=== PATIENT | male | born 1965 | race Caucasian/White ===

== ENCOUNTER 2017-05-30 22:09 | Inpatient (IN) | payer MEDICAID, OTHER ==
[~2017-05-30 22:09] MED LIST: ISOVUE-370 76%-LOCM 1 ML ONE
[2017-05-30 22:46] LABS: #Basophils 0.1 thou/uL (0.0-0.2); #Eosinphils 0.4 thou/uL (0.0-0.7); #Lymphocytes 1.6 thou/uL (1.20-3.40); #Monocytes 0.8 thou/uL (0.11-0.59); #Neutrophils 11.7 thou/uL (1.40-6.50); %Basophils 0.5 % (0.0-1.0); %Eosinophils 2.8 % (0.0-10.0); %Lymphocytes 10.9 % (21.0-51.0); %Monocytes 5.7 % (0.0-10.0); %Neutrophils 80.1 % (42.0-75.0); Hemoglobin 15.1 g/dL (14.0-18.0); Mean Corpuscular HGB CONC 33.2 g/dL (32.0-36.0); Mean Corpuscular Hemoglobin 28.6 pg (27.0-31.0); Mean Corpuscular Volume 86.2 fl (80.0-94.0); Mean Platelet Volume 7.4 fL (7.4-10.4); Platelet Count 363 thou/uL (130-400); RBC Distribution Width 13.6 % (11.5-14.5); Red Blood Cell (RBC) Count 5.27 mill/uL (4.70-6.10); White Blood Cell (WBC) Count 14.6 thou/uL (4.8-10.8)
--- NOTE | 2017-05-30 22:54 | RAD ---
EXAM: ONE VIEW CHEST 05/30/17 HISTORY: Chest pain. Shortness of breath. Congestive heart failure. COMPARISON: None. FINDINGS: Portable upright chest demonstrates a left sided transvenous defibrillator with lead position in righ t atrium and right ventricle. Heart size is normal. Pulmonary vessels and hilum are normal. Costophre rula angles are clear. Blunting of the left costophrenic angle. Right costophrenic angle is clear. No masses or consolidation. Adequate aeration of the right lung. Patchy interstitial opacities in the le ft mid lung. No pneumothorax or osseous abnormalities. IMPRESSION: Patchy interstitial opacity left mid lung. Blunting of the left costophrenic angle likely due to smal l effusion. POS: [facility]
[2017-05-30 23:06] LABS: ALT (SGPT) 36 U/L (8-55); AST (SGOT) 29 U/L (5-34); Albumin 4.2 g/dL (3.5-5.0); Alkaline Phosphatase 64 U/L (40-150); Anion Gap 13 mmol/L (10-20); BUN (Urea Nitrogen) 18 mg/dL (8.4-25.7); Bilirubin, Total 0.6 mg/dL (0.2-1.2); CK (CPK) 505 U/L (30-200); Calc. Creatinine Clearance 0 mL/min (70-130); Calcium 9.8 mg/dL (7.8-10.44); Carbon Dioxide 25 mmol/L (22-29); Chloride 101 mmol/L (98-107); Estimated GFR-MDRD 57; Globulin 2.9 g/dL (2.4-3.5); Glucose 97 mg/dL (70-105); Potassium 4.2 mmol/L (3.5-5.1); Protein, Total 7.1 g/dL (6.0-8.3); Sodium 135 mmol/L (136-145)
[2017-05-30 23:14] LABS: CKMB 3.3 ng/mL (0-6.6); Troponin I 0.013 ng/mL (< 0.028)
[2017-05-30] MEDS ORDERED: Piperacillin/Tazobactam 4.5 GM in Sodium Chloride 0.9% 100 ML IVPB SCH (23:45)
[2017-05-30] MEDS ORDERED: Morphine 4 MG/ML Carpuject ONE (23:50)
--- NOTE | 2017-05-31 00:02 | CT ---
EXAM CT ANGIOGRAM OF THE CHEST 05/30/17 HISTORY: Chest pain. Patient has a history of pulmonary artery emboli. Atrial fibrillation. Patient has a clot ting disorder. COMPARISON: None. TECHNIQUE: CT angiogram of the chest is performed in the axial plane. Bilateral oblique and coronal three dimens ional reformatted images are submitted for interpretation. FINDINGS: Trachea and central bronchi are patent. Emphysematous changes in the left and right upper lobe are no roxy. There is a pleural based opacity in the anterior aspect of the left upper lobe measuring 2.0 x 1 .0 cm. Area of scar or atelectasis is favored. A focal infiltrate cannot be excluded. Followup CT in six weeks is recommended. There are dependent atelectatic changes in the lung bases. There is no pleu ral effusion. No pneumothorax. The visualized upper solid organs are unremarkable. Note is made of an IVC filter. No mediastinal mass, lymphadenopathy, or hematoma. Heart size is within normal limits. No pericardial effusion. The visualized aorta has a normal caliber. No periaortic fat stranding. Limited evaluation of the pulmonary artery system due to timing of bolus. There is adequate contrast opacification of the pulmonary arterial system to the level of the lobar artery. No filling defect to suggest thromboembolism. Evaluation of the segmental and subsegmental artery is limited on this exam ination. No evidence of a lytic or blastic lesion in the osseous structures. The thoracic spine hemangiomas ma y be present. IMPRESSION: 1. Limited evaluation of the pulmonary arterial system due to timing of bolus. There is adequate contrast opacification of the pulmonary arterial system to the level of the lobar arteries. No filli ng defect to suggest thromboembolism. 2. Pleural based opacity in the left upper lobe which may represent scar, atelectasis or infiltr ate. Followup exam in six weeks is recommend to ensure resolution. POS: [facility]
[2017-05-31] MEDS ORDERED: Ondansetron HCl/PF 4 MG/2 ML Vial IVP PRN ×2 (00:58→20:21)
[2017-05-31] MEDS ORDERED: Ondansetron ODT 4 MG TAB SL PRN (00:58)
[2017-05-31 02:41] LABS: Troponin I Less than 0.010 ng/mL (< 0.028)
[2017-05-31 04:30] VITALS: BMI 27.4
[2017-05-31] MEDS: HYDROcodone/Acetaminophen 10/325 mg Tablet PO PRN ×5 (05:48→23:44)
[2017-05-31 05:53] LABS: Troponin I 0.012 ng/mL (< 0.028)
[2017-05-31] MEDS ORDERED: HYDROcodone/Acetaminophen 10/325 mg Tablet PO PRN (12:36)
[2017-05-31] MEDS ORDERED: Non-Formulary Item 1 EACH (Potassium Chloride [Potassium Chloride] 20 MEQ) PO PRN (12:36)
[2017-05-31] MEDS ORDERED: Non-Formulary Item 1 EACH (Clonazepam [Clonazepam] 2 MG) PO PRN (12:36)
[2017-05-31] MEDS ORDERED: Furosemide 20 MG TAB PO PRN (12:36)
[2017-05-31] MEDS ORDERED: Furosemide 40 MG TAB PO PRN (12:44)
[2017-05-31] MEDS ORDERED: Benzonatate 100 MG CAP PO SCH (12:45)
[2017-05-31] MEDS ORDERED: clonazePAM 1 MG TAB PO PRN (12:46)
[2017-05-31] MEDS ORDERED: Potassium Chloride 20 MEQ TAB PO PRN (12:47)
[2017-05-31] MEDS: Benzonatate 100 MG CAP PO SCH ×2 (15:50→20:41)
--- NOTE | 2017-05-31 19:32 | HP ---
DATE OF ADMISSION: 05/31/2017 ADMITTING PHYSICIAN: Dr. Carlos Carlin. CHIEF COMPLAINT: Chest pain and shortness of breath. HISTORY OF PRESENT ILLNESS: The patient is a 51-year-old gentleman with a long cardiac history inclu ding atrial fibrillation and systolic congestive heart failure. The patient reports that for the t 3-4 days he has had worsening shortness of breath, chest pain, and for the last day he has had a pe rsistent cough. He reports that his pain became worse about 8:00 last night and he experienced dizzi ness and lightheadedness. He does have a significant cardiac history including atrial fibrillation s tyson his childhood, cardiomyopathy, defibrillator, congestive heart failure. The patient also has a history of hypercoagulability. He denies any sick contacts. Denies subjective fevers and chills, bu t does report lethargy. Normal Cardiology care is provided at [facility] in [place]. He is in town visiting a friend. Primary care is in [place]. REVIEW OF SYSTEMS: The following complete review of systems was negative, unless otherwise mentioned in the HPI or below: Constitutional: Weight loss or gain, sense of well-being, ability to conduct usual activities, exerc ise tolerance. Skin/Breast: Rash, itching, changes in hair growth or loss, nail changes, breast lumps, tenderness, swelling, nipple discharge. Eyes: Vision, double vision, tearing, blind spots, pain. ENT/Mouth: Headaches (location, time of onset, duration, precipitating factors), vertigo, lightheade dness, injury. Vision, double vision, tearing, blind spots, pain, nose bleeding, colds, obstruction, discharge, dental difficulties, gingival bleeding, dentures, neck stiffness, pain, tenderness, masses in thyroid or other areas. Cardiovascular: Precordial pain, substernal distress, palpitations, syncope, dyspnea on exertion, or thopnea, nocturnal paroxysmal dyspnea, edema, cyanosis, hypertension, heart murmurs, varicosities, ph lebitis, claudication. Respiratory: Pain, shortness of breath, wheezing, stridor, cough, hemoptysis, fever or night sweats. Gastrointestinal: Poor appetite, dysphagia, indigestion, abdominal pain, heartburn, eructation, naus ea, vomiting, hematemesis, jaundice, constipation, or diarrhea, abnormal stools (nisreen-colored, tarry, bloody, greasy, foul smelling), flatulence, hemorrhoids, recent changes in bowel habits. Genitourinary: Urgency, frequency, dysuria, nocturia, hematuria, polyuria, oliguria, unusual (or thony nge in) color of urine, stones, hesitancy, change in size of stream, dribbling, acute retention or in continence, libido, potency. Musculoskeletal: Pain, swelling, redness or heat of muscles or joints, limitation, of motion, muscul ar weakness, atrophy, cramps. Neurologic/Psychiatric: Convulsions, paralyses, tremor, incoordination, paresthesias, difficulties w ith memory of speech, sensory or motor disturbances, or muscular coordination (ataxia, tremor), emoti onal problems, anxiety, depression, previous psychiatric care, unusual perceptions, hallucinations. Allergy/Immunologic: Skin rash, anemia, bleeding tendency, polydipsia, polyuria, intolerance to heat or cold. PAST MEDICAL HISTORY: Significant for chronic atrial fibrillation, systolic congestive heart failure , hypertension, renal disease, pulmonary disease. PAST SURGICAL HISTORY: Positive for cardiac ablation and pacemaker placement. SOCIAL HISTORY: The patient uses marijuana. Denies alcohol or tobacco. FAMILY HISTORY: Reviewed and noncontributory to this case. DRUG ALLERGIES: No known drug allergies. HOME MEDICATIONS: Include acetaminophen and codeine 300 mg and 30 mg one to two tabs q.6 hours as ne eded, carvedilol 25 mg 1 tab b.i.d., Lasix 40 mg 1 tab as needed, Protonix 40 mg 1 tab q. day, Xarelt o 20 mg 1 tablet q. day, eplerenone 25 mg once a day, fentanyl patch 25 mg q.72 hours. PHYSICAL EXAMINATION: VITAL SIGNS: Blood pressure 136/73, pulse 80, respirations 16, pain 4, O2 sats 96% on 2 liters. GENERAL: He does appear to be in mild distress. HEAD: Normocephalic, atraumatic. EYES: PERRL. Extraocular muscles intact. ENT: External nose exam normal. Mouth exam normal. Mucous membranes moist. NECK: Trachea midline. Supple, full range of motion. LUNGS: There are few scant rhonchi diffusely. CARDIAC: Irregularly irregular. ABDOMEN: Nontender, nondistended. EXTREMITIES: No clubbing, cyanosis or edema. SKIN: There is some erythema in face and torso. NEUROLOGIC: Full range of motion in all extremities. Cranial nerves II-XII grossly intact. LABORATORY DATA AND IMAGES: CBC shows a white count of 14.6, hemoglobin 15, hematocrit 45.5, platele ts 263, neutrophils 80%, no bands. Chem-7 shows sodium of 135, potassium 4.2, chloride 101, CO2 of 2 5, BUN 18, creatinine 1.31, glucose 97, AST 29, ALT 36, albumin 4.2. BNP of 21.7. Troponin I 0.013, 0.01 and 0.012 with a CK-MB fraction of 3.3. His creatine kinase was elevated at 505. Chest and th orax CT angiogram shows no filling defect to suggest thromboembolism. There is a pleural-based opaci ty in the left upper lobe, which may represent scar, atelectasis or infiltrate. Chest x-ray showed p atchy interstitial opacity of the left mid lung with blunting of the left costophrenic angle likely d ue to a small effusion. ASSESSMENT: 1. Pneumonia. 2. Atypical chest pain. 3. Systolic congestive heart failure. 4. Chronic kidney disease, grade 2. PLAN: The patient will be admitted to telemetry unit. We will continue the patient's anticoagulatio n. The patient will be treated empirically with Levaquin for community-acquired pneumonia. The foster ent appears to be stable from a cardiac standpoint at this time, we will follow closely and acquire a Cardiology input as needed. We will provide DVT prophylaxis with SCD devices although the patient i s currently anticoagulate.
[2017-05-31] MEDS ORDERED: Ondansetron ODT 4 MG TAB PO PRN (20:21)
[2017-05-31] MEDS: Sacubitril 24.5 MG/Valsartan 25.5 MG TABLET PO SCH (20:41)
[2017-05-31] MEDS: Carvedilol 25 MG TAB PO SCH (20:42)
[2017-05-31] MEDS ORDERED: traZODone HCl 150 MG TAB PO SCH (21:00)
[2017-05-31] MEDS ORDERED: Non-Formulary Item 1 EACH (Sacubitril/Valsartan [Entresto 24 Mg-26 Mg Tablet] 1 TAB) PO SCH (21:00)
[2017-05-31] MEDS ORDERED: TRAZODONE HCL 300 MG PO SCH (21:00)
[2017-06-01 04:23] VITALS: BP 126/66
[2017-06-01 05:17] LABS: #Basophils 0.1 thou/uL (0.0-0.2); #Eosinphils 0.5 thou/uL (0.0-0.7); #Lymphocytes 1.5 thou/uL (1.20-3.40); #Monocytes 0.9 thou/uL (0.11-0.59); #Neutrophils 6.5 thou/uL (1.40-6.50); %Basophils 1.2 % (0.0-1.0); %Eosinophils 5.1 % (0.0-10.0); %Lymphocytes 15.6 % (21.0-51.0); %Monocytes 9.4 % (0.0-10.0); %Neutrophils 68.8 % (42.0-75.0); Hemoglobin 14.4 g/dL (14.0-18.0); Mean Corpuscular HGB CONC 32.4 g/dL (32.0-36.0); Mean Corpuscular Hemoglobin 28.4 pg (27.0-31.0); Mean Corpuscular Volume 87.6 fl (80.0-94.0); Mean Platelet Volume 7.3 fL (7.4-10.4); Platelet Count 319 thou/uL (130-400); RBC Distribution Width 13.5 % (11.5-14.5); Red Blood Cell (RBC) Count 5.07 mill/uL (4.70-6.10); White Blood Cell (WBC) Count 9.4 thou/uL (4.8-10.8)
[2017-06-01] MEDS: HYDROcodone/Acetaminophen 10/325 mg Tablet PO PRN ×2 (05:23→09:54)
[2017-06-01 05:31] LABS: Anion Gap 12 mmol/L (10-20); BUN (Urea Nitrogen) 20 mg/dL (8.4-25.7); Calc. Creatinine Clearance 87 mL/min (70-130); Calcium 9.2 mg/dL (7.8-10.44); Carbon Dioxide 28 mmol/L (22-29); Chloride 102 mmol/L (98-107); Estimated GFR-MDRD 55; Glucose 96 mg/dL (70-105); Potassium 4.3 mmol/L (3.5-5.1); Sodium 138 mmol/L (136-145)
[2017-06-01] MEDS ORDERED: Non-Formulary Item 1 EACH (Rivaroxaban [Xarelto] 20 MG) PO SCH (09:00)
[2017-06-01] MEDS ORDERED: EPLERENONE 25 MG PO SCH ×2 (09:00)
[2017-06-01] MEDS ORDERED: Non-Formulary Item 1 EACH (Dexlansoprazole [Dexilant] 60 MG) PO SCH (09:00)
[2017-06-01] MEDS ORDERED: Rivaroxaban 10 MG TAB PO SCH (09:00)
[2017-06-01] MEDS: Benzonatate 100 MG CAP PO SCH (09:53)
[2017-06-01] MEDS: Sacubitril 24.5 MG/Valsartan 25.5 MG TABLET PO SCH (09:53)
[2017-06-01] MEDS: Carvedilol 25 MG TAB PO SCH (09:54)
[2017-06-01 10:56] VITALS: TEMP 98.5
--- NOTE | 2017-06-01 22:12 | DIS ---
DATE OF ADMISSION: 05/31/2017 DATE OF DISCHARGE: 06/01/2017 PRIMARY DISCHARGE DIAGNOSES: 1. Upper respiratory infection. 2. Chronic systolic congestive heart failure. 3. Hypertension. 4. Pulmonary hypertension. HOSPITAL COURSE: Patient was admitted secondary to increased shortness of breath and cough over the last 2 to 3 days prior to admission. Patient reports that he has not had any sick contacts. He does report subjective fevers and chills, and excessive coughing. The patient was negative for influenza nasal swab. He was treated empirically for community-acquired pneumonia with IV Levaquin. Patient improved. His white count dropped from 14,000 to 9000. Patient remained afebrile. His coughing sym ptoms improved. Patient requested discharge. He was from out of town and had [facility] [place], as well as other doctor appointments. The patient was deemed stable for disch arge. We sent him with Levaquin p.o. He is to follow up with his primary care doctor and pulmonolog ist in [place]. DISCHARGE DISPOSITION: To home. DISCHARGE DIET: Cardiac, heart healthy. DISCHARGE MEDICATIONS: We resumed his home regimen per the medication reconciliation sheet. We adde d Levaquin 750 mg p.o. daily for 7 days. PHYSICAL EXAMINATION: GENERAL: He was in no acute distress. HEENT: Normocephalic, atraumatic. Eyes, PERRL. Extraocular muscles intact. CARDIAC: Irregularly irregular. LUNGS: Clear to auscultation, no rhonchi. ABDOMEN: Nontender, nondistended. EXTREMITIES: No clubbing, cyanosis, or edema. CONSULTATIONS: None. PROCEDURES: None. FOLLOWUP: Patient is to follow up with his PCP within 3 to 7 days.
--- NOTE | 2017-06-07 14:21 | EKG ---
Test Reason : Blood Pressure : / mmHG Vent. Rate : 080 BPM Atrial Rate : 080 BPM P-R Int : 150 ms QRS Dur : 094 ms QT Int : 340 ms P-R-T Axes : 032 -45 041 degrees QTc Int : 392 ms Atrial-paced rhythm Left anterior fascicular block Moderate voltage criteria for LVH, may be normal variant Abnormal ECG Confirmed by KUNAL ERICKSON, CHRISTIANO ([id number]), slot editor ELLIE TRAN ([id number]) on 06/07/2017 2:21:15 PM Referred By: Confirmed By:CHRISTIANO SYED MD
== END 2017-06-01 11:56 | disposition home or self-care (01) | DRG 153 ==
LOC: ERS 22:09 → 2NO 05-31 00:12
PROVIDERS: ADMIT Hospitalist; ATTEND Hospitalist
DX: J06.9 Acute upper respiratory infection, unspecified (principal); I27.20 Pulmonary hypertension, unspecified; I50.22 Chronic systolic (congestive) heart failure; I42.9 Cardiomyopathy, unspecified; I13.0 Hypertensive heart and chronic kidney disease with heart failure and stage 1 through stage 4 chronic kidney disease, or unspecified chronic kidney disease; R07.9 Chest pain, unspecified; I48.91 Unspecified atrial fibrillation; F12.10 Cannabis abuse, uncomplicated; N18.2 Chronic kidney disease, stage 2 (mild)
CPT/HCPCS: 36415; 71045; 71275; 80048; 80053; 82550; 82553; 83880; 84484; 85025; 87040; 87149; 93005; 96374; 96375; A4216; J1956; J2270; J2543; J3370; J7050; Q0162